=== PATIENT | female | born 1950 | race Two or more races ===

== ENCOUNTER 2019-04-20 20:18 | Emergency (ER) | payer OTHER ==
[~2019-04-20] VITALS: Ht 157.5 cm; Wt 72.6 kg
[2019-04-21 00:43] VITALS: BP 163/73
[2019-04-21] MEDS ORDERED: ACETAMINOPHEN/CODEINE#3 (300/30mg) TAB PO ONE (01:45)
== END 2019-04-21 02:02 | disposition home or self-care (01) ==
LOC: ER 20:25
DX: S33.2XXA Dislocation of sacroiliac and sacrococcygeal joint, initial encounter (principal); W01.0XXA Fall on same level from slipping, tripping and stumbling without subsequent striking against object, initial encounter; Y93.89 Activity, other specified; Y92.812 Truck as the place of occurrence of the external cause; Y99.8 Other external cause status
CPT/HCPCS: 72220

== ENCOUNTER 2019-07-16 16:06 | Inpatient (IN) | payer OTHER ==
[~2019-07-16] VITALS: Ht 157.5 cm; Wt 76.4 kg
[2019-07-16] MEDS ORDERED: ACETAMINOPHEN/CODEINE#3 (300/30mg) TAB PO ONE (20:00)
[2019-07-16 22:00] LABS: Basophils # (auto) 0.1 uL; Basophils % (auto) 0.5 % (0.0-2.0); Eosinophils # (auto) 0.3 uL; Eosinophils % (auto) 2.5 % (0.0-7.0); Hematocrit 38.3 % (36.0-46.0); Hemoglobin 12.8 g/dL (12.2-16.2); Lymphocytes # (auto) 2.1 uL; Lymphocytes % (auto) 17.3 % (10.0-50.0); Mean Corpuscular Hemoglobin 29.6 pg (28.0-32.0); Mean Corpuscular Hgb Conc. 33.4 g/dL (32.0-36.0); Mean Corpuscular Volume 88.6 fL (80.0-100.0); Monocytes % (auto) 7.9 % (0.0-12.0); Neutrophils # (auto) 8.7 uL; Neutrophils % (auto) 71.8 % (37.0-80.0); Nucleated Red Blood Cells % 0.1 %; Platelet Count (auto) 398 10^3/uL (140-450); Red Blood Cells 4.32 10^6/uL (4.0-5.20); Red Cell Distribution Width 14.1 % (11.8-14.3); White Blood Cell 12.1 10^3/uL (4.4-10.8)
[2019-07-16 22:14] LABS: INR 1.06 (0.9-1.15); Partial Thromboplastin Time 31.8 sec (23.64-32.05)
[2019-07-16 22:19] LABS: Albumin 3.3 g/dL (3.4-5.0); BUN/Creatinine Ratio 23.6; Calcium 9.6 mg/dL (8.5-10.1); Potassium 3.9 mmol/L (3.5-5.1)
[2019-07-16 22:21] LABS: Bilirubin, Total 0.3 mg/dL (0.2-1.0); Total Protein 8.3 g/dL (6.4-8.2)
[2019-07-16] MEDS ORDERED: TEMAZEPAM 15 MG CAP PO PRN (23:15)
[2019-07-16] MEDS ORDERED: ONDANSETRON HCL 4 MG/2 ML VIAL IV PRN (23:15)
[2019-07-16] MEDS ORDERED: ACETAMINOPHEN 500 MG TAB PO PRN (23:15)
--- NOTE | 2019-07-17 00:36 | NUR ---
PT TRANSPORTED TO [facility] VIA WHEELCHAIR IN [address] [facility]-WITH NO IV ACCESS ;WILL CALL HOSPITALIST TO OBTAIN DIET ORDER BECAUSE THE PATIENT WANTS TO EAT;BUT THE PATIENT HAS A GI CONSULT IN THE AM. TELE NO 5 REGISTERING NSR 82.
--- NOTE | 2019-07-17 00:54 | NUR ---
SHANON PAGED BECAUSE THE PATIENT HAS NO DIET ORDER AND STATES THAT SHE IS HUNGRY.
--- NOTE | 2019-07-17 01:18 | NUR ---
PT AMBULATED TO BATHROOM WITH STANDBY ASSIST ONLY;GOOD STEADY GAIT;DENIES PAIN.
[2019-07-17] MEDS ORDERED: CARV3.1240 PO (01:53)
[2019-07-17] MEDS ORDERED: LOSA100T25 PO (01:53)
[2019-07-17] MEDS ORDERED: FOLI1TAB6 PO (01:53)
[2019-07-17] MEDS ORDERED: MAGN400T5 PO (01:53)
[2019-07-17] MEDS ORDERED: CYAN100L PO (01:53)
[2019-07-17] MEDS ORDERED: GLIP2.5T28 PO (01:53)
[2019-07-17] MEDS ORDERED: AML5T PO (01:53)
[2019-07-17 04:44] VITALS: BP 118/61
--- NOTE | 2019-07-17 05:16 | NUR ---
PT C/O CHEST PRESSURE.TWELVE LEAD EKG PERFORMED WITH A READING OF SINUS RHYTHM WITH FREQUENT PVC'S.WILL NOTIFY HOSPITALIST NOW-AND REQUEST AN ECHO WITH A CARDIOLOGY CONSULT.
--- NOTE | 2019-07-17 05:17 | NUR ---
HOSPITALIST PAGED;OFFERED PT PAIN MEDICATION BUT PT NOW STATES SHE DOES NOT HAVE ANY PAIN.
--- NOTE | 2019-07-17 06:48 | NUR ---
PT RESTING WITH EYES CLOSED;RESPIRATIONS EVEN UNLABORED;TELE NO 5 REGISTERING NSR 83 WITH OCCASIONAL PVC'S. PT ASYMPTOMATIC AT THIS TIME. WILL EMPHASIZE THE NEED FOR RETAIL MERCHANDISING MANAGER ORDER /CONSULT TO DAYSHIFT. CALL LIGHT IN REACH;02 SAT 97% ROOM AIR.
[2019-07-17 08:17] LABS: Basophils # (auto) 0.1 uL; Basophils % (auto) 0.7 % (0.0-2.0); Eosinophils # (auto) 0.3 uL; Eosinophils % (auto) 2.9 % (0.0-7.0); Hemoglobin 12.8 g/dL (12.2-16.2); Lymphocytes # (auto) 1.1 uL; Mean Corpuscular Hemoglobin 29.7 pg (28.0-32.0); Mean Corpuscular Hgb Conc. 33.7 g/dL (32.0-36.0); Mean Corpuscular Volume 88.2 fL (80.0-100.0); Monocytes # (auto) 0.9 uL; Monocytes % (auto) 7.7 % (0.0-12.0); Neutrophils # (auto) 8.9 uL; Neutrophils % (auto) 78.7 % (37.0-80.0); Platelet Count (auto) 400 10^3/uL (140-450); Red Blood Cells 4.31 10^6/uL (4.0-5.20); White Blood Cell 11.4 10^3/uL (4.4-10.8)
[2019-07-17 08:30] LABS: BUN/Creatinine Ratio 25.2; Calcium 9.2 mg/dL (8.5-10.1); Potassium 3.9 mmol/L (3.5-5.1)
[2019-07-17 08:50] VITALS: BP 122/65
[2019-07-17] MEDS ORDERED: MIDAZOLAM HCL 5 MG/ML-1ML VIAL ONE (10:22)
[2019-07-17] MEDS ORDERED: SODIUM CHLORIDE LOCK 10 ML ONE (10:22)
[2019-07-17] MEDS ORDERED: NALOXONE HCL 0.4 MG/ML VIAL ONE (10:22)
[2019-07-17] MEDS ORDERED: LIDOCAINE VISCOUS 2% 15ML UD ONE (10:22)
[2019-07-17] MEDS ORDERED: FLUMAZENIL 0.1 MG/ML INJ 10ML MDV IV ONE (10:22)
[2019-07-17] MEDS ORDERED: fentaNYL CITRATE 100 MCG/2 ML VL ONE (10:22)
[2019-07-17] MEDS ORDERED: diphenhdrAMINE HCL 50 MG/1 ML VL ONE (10:23)
[2019-07-17] MEDS: amLODIPine BESYLATE 5 MG TAB PO SCH (12:13)
[2019-07-17] MEDS: PANTOPRAZOLE 40 MG TAB PO SCH ×2 (12:13→21:07)
[2019-07-17] MEDS: CARVEDILOL 3.125 MG TAB PO SCH ×2 (12:14→18:00)
[2019-07-17 13:00] VITALS: BP 120/61
[2019-07-17 17:00] VITALS: BP 105/65
--- NOTE | 2019-07-17 19:16 | NUR ---
Change of shift given to night shift supervisor RN. No distress noted.
--- NOTE | 2019-07-17 20:00 | NUR ---
OPENING NOTE RECEIVED REPORT FROM DAYSHIFT RN. ASSUMING ROLE OF CARE OF PATIENT AT THIS TIME. PATIENT SHOWING NO SIGN OF DISTRESS, SHORTNESS OF BREATH, AND PATIENT DENIES ANY PAIN AT THIS TIME. PATIENT EDUCATED ON PLAN OF CARE FOR THE NIGHT AND PATIENT VERBALIZED UNDERSTANDING. BED LOWERED, CALL LIGHT WITHIN REACH, AND PATIENT WILL BE ROUNDED ON EVERY HOUR AND NEEDED.
[2019-07-17 22:00] VITALS: BP 109/64
[2019-07-18 05:00] VITALS: BP 109/62
--- NOTE | 2019-07-18 07:28 | NUR ---
Opening Shift Note Assumed care of patient, awake and alert. No S/S of distress/SOB or pain. Instructed on POC and to call for assist PRN, will continue to monitor for changes Q1hr and PRN.
[2019-07-18 08:00] VITALS: BP_SYST 101; BP_SYST 131; BP_DIAS 34; BP_DIAS 72
[2019-07-18] MEDS: CARVEDILOL 3.125 MG TAB PO SCH (09:54)
[2019-07-18] MEDS: amLODIPine BESYLATE 5 MG TAB PO SCH (09:55)
[2019-07-18] MEDS: PANTOPRAZOLE 40 MG TAB PO SCH (09:55)
[2019-07-18 12:00] VITALS: BP 115/76
[2019-07-18 13:15] VITALS: BP 115/76
--- NOTE | 2019-07-18 14:24 | NUR ---
Discharge instructions given as ordered. Encourage to follow up with PMD as instructed. All questions and concerns addressed. Patient verbalized understanding. Medication reconciliation form completed and copy given to patient. Patient and family denies home medications held in Pharmacy. IV removed with catheter intact, pressure dressing applied. Telemetry unit returned to ICU. Patient taken to vehicle via wheelchair with all personal belongings, accompanied by staff and family member. No distress noted at time of departure.
== END 2019-07-18 14:24 | disposition home or self-care (01) | DRG 604 ==
LOC: ER 16:06 → TELE 16:07 → TELE-EAST 23:58
PROVIDERS: ADMIT Nurse Practitioner Family; ATTEND Family Medicine
PROC: 0DB68ZX Excision of Stomach, Via Natural or Artificial Opening Endoscopic, Diagnostic (ICD-10-PCS; principal; 2019-07-17 10:40)
DX: S30.1XXA Contusion of abdominal wall, initial encounter (principal); K29.71 Gastritis, unspecified, with bleeding; M54.9 Dorsalgia, unspecified; E11.9 Type 2 diabetes mellitus without complications; I10 Essential (primary) hypertension; K57.90 Diverticulosis of intestine, part unspecified, without perforation or abscess without bleeding; X58.XXXA Exposure to other specified factors, initial encounter; Z90.5 Acquired absence of kidney; Z90.49 Acquired absence of other specified parts of digestive tract; Z87.442 Personal history of urinary calculi; Y93.89 Activity, other specified; Y92.89 Other specified places as the place of occurrence of the external cause; Y99.8 Other external cause status; Z79.899 Other long term (current) drug therapy; Z79.84 Long term (current) use of oral hypoglycemic drugs
CPT/HCPCS: 36415; 43239; 71046; 74176; 80048; 80053; 84702; 85025; 85610; 85730; 93005; G0378; J2250